=== PATIENT | male | born 1950 | race Caucasian/White ===

== ENCOUNTER 2017-12-11 14:45 | Inpatient (IN) | payer MEDICARE, OTHER ==
[~2017-12-11] VITALS: Ht 190.5 cm; Wt 83.0 kg
[2018-01-01] VITALS (9 sets, daily range): BP systolic 112–135; BP diastolic 58–77; PULSE 48–75; TEMP 97.6–98.4
[2018-01-01] MEDS ORDERED: ARMOUR THYROID15 MG PO (08:52)
[2018-01-01] MEDS ORDERED: SYNTHROID0.075 MG/T PO (08:53)
[2018-01-02 00:55] VITALS: BP 98/59; PULSE 85; TEMP 98
[2018-01-02 04:00] VITALS: BP 100/76; PULSE 73; TEMP 98
[2018-01-02 06:45] LABS: HEMATOCRIT 35.9 % (42.0-52.0)
[2018-01-02 07:37] VITALS: BP 103/50; PULSE 69; TEMP 98.2
[2018-01-02 12:23] VITALS: BP 104/61; PULSE 78; TEMP 98.7
[2018-01-02 15:56] VITALS: BP 97/53; PULSE 58; TEMP 97.9
[2018-01-02 19:08] VITALS: BP 119/53; PULSE 68; TEMP 98.4
[2018-01-03 00:29] VITALS: BP 105/57; PULSE 64; TEMP 98
[2018-01-03 04:42] VITALS: BP 105/58; PULSE 64; TEMP 98.2
[2018-01-03 06:26] VITALS: BP 98/54; PULSE 100
[2018-01-03] MEDS ORDERED: XARELTO10 MG PO (06:51)
[2018-01-03] MEDS ORDERED: SENOKOT S 50 MG1 TAB PO (06:52)
[2018-01-03] MEDS ORDERED: ROXICODONE 55 MG/TAB PO (06:52)
[2018-01-03 07:00] LABS: HEMOGLOBIN 11.1 g/dl (13.5-18.0)
[2018-01-03 07:05] LABS: HEMATOCRIT 34.5 % (42.0-52.0)
[2018-01-03 11:20] VITALS: BP 101/54; PULSE 73; TEMP 98
== END 2018-01-03 17:56 | disposition home or self-care (01) | DRG 470 ==
LOC: JCC 01-01 07:55
PROVIDERS: Orthopaedic Surgery
PROC: 0SRD0J9 Replacement of Left Knee Joint with Synthetic Substitute, Cemented, Open Approach (ICD-10-PCS; principal; 2018-01-01 13:35)
DX: M17.12 Unilateral primary osteoarthritis, left knee (principal); E78.00 Pure hypercholesterolemia, unspecified; Z87.891 Personal history of nicotine dependence; E03.9 Hypothyroidism, unspecified
CPT/HCPCS: A4314; A9284; C1713; C1776; J0690; J1100; J1885; J2250; J2405; J2704; J3010; J7030; J7120

== ENCOUNTER → 2017-12-11 | Outpatient (CLI) | payer MEDICARE, OTHER ==
[~2017-12-11] MED LIST: COLACE 100100 MG/CAP PO; COUMADIN 1MG1 MG/TAB PO; COUMADIN 5MG5 MG/TAB PO; FERROUS SU325 MG/TAB PO; FOLIC ACID0.4 MG PO; LIPITOR20 MG PO; NORCO 325 MG-7.1 TAB PO; PERCOCET 325 MG1 TA2 PO; ROXICODONE 55 MG/TAB PO; VITAMINC1000TA
== END ==
LOC: COL.LAB 10:03
DX: Z96.652 Presence of left artificial knee joint (principal)

== ENCOUNTER → 2017-12-17 | Outpatient (REF) ==
[2017-12-17 19:09] LABS: THYROID STIMULATING HORMONE 4.43 uIU/mL (0.465-4.680)
== END ==
LOC: ZLAB.WCH 16:47
PROVIDERS: Internal Medicine
DX: Z01.89 Encounter for other specified special examinations (principal)
CPT/HCPCS: G0103